=== PATIENT | male | born 1965 | race Hispanic/Latino ===

== ENCOUNTER 2017-11-22 21:33 | Emergency (ER) | payer BC ==
[~2017-11-22] VITALS: Ht 170.2 cm; Wt 89.0 kg
[2017-11-22 21:50] LABS: HEMATOCRIT 43.6 % (38.0-50.0); HEMOGLOBIN 15.2 G/DL (12.5-16.6); MCH 30.3 PG (29.0-34.0); MCHC 34.9 G/DL (30.0-36.0); MCV 86.9 FL (86-99); PLATELET COUNT 237 K/uL (156-360); RBC DIS.WIDTH-CV 12.8 % (11.8-14.6); RBC DIS.WIDTH-SD 40.4 % (39-53); RED BLOOD COUNT 5.02 M/uL (4.00-5.50); WHITE BLOOD COUNT 7.5 K/uL (4.1-10.2)
[2017-11-22 22:12] LABS: ALBUMIN 4.1 g/dL (3.2-4.8); CHLORIDE 106 mEq/L (99-109); POTASSIUM 3.8 mEq/L (3.7-5.4)
[2017-11-22 22:13] LABS: SODIUM 140 mEq/L (136-147)
[2017-11-22 22:15] LABS: GLUCOSE 100 mg/dL (70-99); TOTAL PROTEIN 7.7 g/dL (6.4-8.3)
[2017-11-22 22:17] LABS: TOTAL BILIRUBIN 0.5 mg/dL (0.0-1.0)
[2017-11-22 22:18] LABS: ALKALINE PHOSPHATASE 88 IU/L (3-129); CREATININE 1.3 mg/dL (0.6-1.3)
[2017-11-22 22:20] LABS: AST (GOT) 40 IU/L (2-34); GFR ESTIMATE (CALCULATED) > 59 mL/min/ (58.99-99999); UREA NITROGEN (BUN) 21 mg/dL (9-23)
[2017-11-22 22:21] LABS: ALT (GPT) 48 IU/L (3-49)
[2017-11-22 22:22] LABS: LIPASE 29 U/L (1.0-51.0)
[2017-11-23 00:39] LABS: APPEARANCE CLEAR ((CLEAR)); BILIRUBIN NEGATIVE; BLOOD NEGATIVE; COLOR YELLOW ((YELLOW)); GLUCOSE (STRIP) NEGATIVE; KETONES 5; LEUKOCYTES NEGATIVE; NITRITE NEGATIVE; PROTEIN (STRIP) 30; SPECIFIC GRAVITY 1.032 (1.000-1.030); UCUL ADDED? NO; UROBILINOGEN 0.2 MG/DL (0.2-1.0)
[2017-11-23] MEDS ORDERED: ZOFRAN ODT8 MG PO (02:20)
[2017-11-23] MEDS ORDERED: BENTYL20 MG PO (02:20)
[2017-11-23 02:34] VITALS: BP 156/104
== END 2017-11-23 02:35 | disposition home or self-care (01) ==
LOC: EME 21:33
DX: R10.11 Right upper quadrant pain (principal); R11.0 Nausea; R19.7 Diarrhea, unspecified; E86.0 Dehydration; R03.0 Elevated blood-pressure reading, without diagnosis of hypertension
CPT/HCPCS: 74176; 76705; 80053; 81003; 83690; 85027; 99281; 99284; J0500